=== PATIENT | female | born 1950 | race Two or more races ===

== ENCOUNTER 2017-07-11 11:55 | Outpatient (CLI) | payer OTHER | END 2017-07-11 15:36 | disposition home or self-care (01) | LOC: TOM 11:55 | DX: G44.009 Cluster headache syndrome, unspecified, not intractable (principal); H81.49 Vertigo of central origin, unspecified ear ==

== ENCOUNTER → 2017-07-11 | Outpatient (CLI) | payer OTHER | END | disposition home or self-care (01) | LOC: RAD 11:42 | DX: M54.2 Cervicalgia (principal) ==

== ENCOUNTER 2019-02-11 10:52 | Outpatient (CLI) | payer OTHER | END 2019-02-11 11:07 | disposition home or self-care (01) | LOC: NUCLEAR 10:52 | DX: I82.409 Acute embolism and thrombosis of unspecified deep veins of unspecified lower extremity (principal); I87.2 Venous insufficiency (chronic) (peripheral); M81.0 Age-related osteoporosis without current pathological fracture ==

== ENCOUNTER → 2019-04-01 | Outpatient (CLI) | payer OTHER | END | disposition home or self-care (01) | LOC: RAD 14:14 | DX: M16.12 Unilateral primary osteoarthritis, left hip (principal) ==

== ENCOUNTER 2020-01-05 08:56 | Outpatient (CLI) | payer OTHER | END 2020-01-05 09:02 | disposition home or self-care (01) | LOC: SONOGRAMA 08:56 | PROVIDERS: ATTEND Internal Medicine | DX: R10.11 Right upper quadrant pain (principal); R10.12 Left upper quadrant pain ==

== ENCOUNTER → 2020-09-15 | Outpatient (CLI) | payer OTHER | END | disposition home or self-care (01) | LOC: RAD 10:29 | PROVIDERS: ATTEND Internal Medicine | DX: M25.562 Pain in left knee (principal) ==

== ENCOUNTER 2020-10-06 12:15 | Outpatient (CLI) | payer OTHER | END 2020-10-06 12:21 | disposition home or self-care (01) | LOC: RAD 12:15 | PROVIDERS: ATTEND Urology | DX: M54.2 Cervicalgia (principal) ==

== ENCOUNTER 2021-02-03 08:59 | Outpatient (CLI) | payer OTHER | END 2021-02-03 09:05 | disposition home or self-care (01) | LOC: TOM 08:59 | PROVIDERS: ATTEND Internal Medicine | DX: R10.2 Pelvic and perineal pain (principal); R10.12 Left upper quadrant pain; R10.11 Right upper quadrant pain | CPT/HCPCS: 74177; Q9965 ==

== ENCOUNTER 2021-03-01 12:48 | Outpatient (CLI) | payer OTHER | END 2021-03-01 12:57 | disposition home or self-care (01) | LOC: MAMO-SONO 12:48 | PROVIDERS: ATTEND Internal Medicine | DX: N60.11 Diffuse cystic mastopathy of right breast (principal); N60.12 Diffuse cystic mastopathy of left breast; Z12.31 Encounter for screening mammogram for malignant neoplasm of breast ==

== ENCOUNTER 2022-07-27 13:37 | Outpatient (CLI) | payer OTHER | END 2022-07-27 13:42 | disposition home or self-care (01) | LOC: SONOGRAMA 13:37 | PROVIDERS: ATTEND Internal Medicine | DX: R10.2 Pelvic and perineal pain (principal) ==

== ENCOUNTER 2022-10-26 12:07 | Outpatient (CLI) | payer OTHER | END 2022-10-26 12:10 | disposition home or self-care (01) | LOC: RAD 12:07 | PROVIDERS: ATTEND Physical Medicine & Rehabilitation | DX: M54.2 Cervicalgia (principal) ==

== ENCOUNTER 2022-11-09 08:50 | Outpatient (CLI) | payer OTHER | END 2022-11-09 08:54 | disposition home or self-care (01) | LOC: SONOGRAMA 08:50 | PROVIDERS: ATTEND Internal Medicine | DX: R10.11 Right upper quadrant pain (principal); R10.12 Left upper quadrant pain ==

== ENCOUNTER → 2023-11-21 | Outpatient (CLI) | payer OTHER | END | disposition home or self-care (01) | LOC: NUCLEAR 12:14 | PROVIDERS: ATTEND Internal Medicine | DX: M81.0 Age-related osteoporosis without current pathological fracture (principal) ==

== ENCOUNTER 2024-08-26 10:52 | Outpatient (CLI) | payer OTHER | END 2024-08-26 11:09 | disposition home or self-care (01) | LOC: MAMO-SONO 10:52 | DX: Z12.31 Encounter for screening mammogram for malignant neoplasm of breast (principal) ==

== ENCOUNTER 2024-10-12 09:25 | Outpatient (CLI) | payer OTHER | END 2024-10-12 09:31 | disposition home or self-care (01) | LOC: RAD 09:25 | DX: M54.51 Vertebrogenic low back pain (principal); N20.0 Calculus of kidney; M25.551 Pain in right hip ==

== ENCOUNTER 2024-10-23 10:04 | Outpatient (CLI) | payer OTHER | END 2024-10-23 10:06 | disposition home or self-care (01) | LOC: SONOGRAMA 10:04 | DX: N60.11 Diffuse cystic mastopathy of right breast (principal); N60.12 Diffuse cystic mastopathy of left breast ==

== ENCOUNTER 2024-11-27 09:34 | Outpatient (CLI) | payer OTHER | END 2024-11-27 09:40 | disposition home or self-care (01) | LOC: RAD 09:34 | PROVIDERS: ATTEND Internal Medicine | DX: M25.512 Pain in left shoulder (principal); M79.622 Pain in left upper arm; M79.10 Myalgia, unspecified site ==